=== PATIENT | male | born 1970 | race Caucasian/White ===

== ENCOUNTER 2022-04-15 09:10 | Emergency (ER) | payer OTHER ==
[2022-04-15 09:32] VITALS: BP 181/99; PULSE 52
[2022-04-15] MEDS ORDERED: Sodium Chloride 0.9% 1,000 ML IV ONE ×2 (09:56→10:33)
[2022-04-15] MEDS ORDERED: Ketorolac 30 MG/ML SDV IVPUSH ONE (09:56)
[2022-04-15] MEDS ORDERED: Sodium Chloride 0.9% 10 ML Syringe FLUSH PRN (10:02)
[2022-04-15 10:24] LABS: ANION GAP 11.5 meq/L (7-15)
[2022-04-15] MEDS ORDERED: traMADol 50 MG Tab PO ONE (10:38)
== END 2022-04-15 12:30 | disposition home or self-care (01) ==
LOC: LL.ED 09:10
DX: R10.32 Left lower quadrant pain (principal); R31.21 Asymptomatic microscopic hematuria
CPT/HCPCS: 36415; 74018; 74150; 80053; 81001; 85025; 96374; 99284; 99284-25; A9270-GY; J1885; J3490; J7030

== ENCOUNTER 2024-12-31 05:55 | Emergency (ER) | payer OTHER ==
[2024-12-31 10:24] VITALS: BP 150/90; PULSE 78
== END 2024-12-31 07:56 | disposition home or self-care (01) ==
LOC: LL.ED 05:55
DX: S93.401A Sprain of unspecified ligament of right ankle, initial encounter (principal); S43.401A Unspecified sprain of right shoulder joint, initial encounter; Z79.899 Other long term (current) drug therapy; W19.XXXA Unspecified fall, initial encounter
CPT/HCPCS: 73030-RT; 73600-RT; 99283